=== PATIENT | female | born 1965 | race Caucasian/White ===

== ENCOUNTER 2018-12-07 18:55 | Emergency (ER) | payer SELFPAY ==
[~2018-12-07] VITALS: Ht 154.9 cm; Wt 50.7 kg
[2018-12-07 19:26] VITALS: Ht 154.9 cm; Wt 50.7 kg
== END 2018-12-07 21:00 | disposition left against medical advice (07) ==
LOC: E/R 18:55
DX: Z53.21 Procedure and treatment not carried out due to patient leaving prior to being seen by health care provider (principal)